=== PATIENT | female | born 1965 | race American Indian/Alaskan Native ===

== ENCOUNTER 2016-06-28 21:24 | Emergency (ER) | payer BC ==
[2016-06-28 23:45] LABS: Basophils % (Auto) 0.9 % (0.0-1.8); Eosinophils % (Auto) 1.8 % (0.0-4.3); Mean Corpuscular HGB Conc 34 % (30-34); Mean Corpuscular Hemoglobin 30 pg (28-32); Mean Corpuscular Volume 89 fl (79-97); Platelet Count 263 K/mm3 (140-440); Red Blood Count 4.94 M/mm3 (3.65-5.03); Red Cell Distribution Width 13.9 % (13.2-15.2); White Blood Count 9.6 K/mm3 (4.5-11.0)
[2016-06-29 00:10] LABS: Alanine Aminotransferase 13 units/L (7-56); Albumin 4.2 g/dL (3.9-5); Albumin/Globulin Ratio 1.4 %; Alkaline Phosphatase 80 units/L (35-129); Anion Gap 19 mmol/L; BUN/Creatinine Ratio 23.33; Bilirubin,Total 0.3 mg/dL (0.1-1.2); Blood Urea Nitrogen 21 mg/dL (7-17); Calcium 9.7 mg/dL (8.4-10.2); Carbon Dioxide 23 mmol/L (22-30); Chloride 102.4 mmol/L (98-107); Glucose 124 mg/dL (65-100); Lipase 58 units/L (13-60); Potassium 3.5 mmol/L (3.6-5.0); Sodium 141 mmol/L (137-145); Total Protein 7.3 g/dL (6.3-8.2)
[2016-06-29 00:24] LABS: Bacteria,Urine 1+ /HPF (Negative); Bilirubin,Urine NEG (Negative); Blood,Urine LG (Negative); Ketones,Urine NEG (Negative); Leukocyte Esterase,Urine NEG (Negative); Mucus,Urine FEW /HPF; Nitrite,Urine NEG (Negative); Urobilinogen,Urine < 2.0 mg/dL (<2.0)
[2016-06-29 00:30] LABS: RBC,Urine > 182.0 /HPF (0.0-6.0)
[2016-06-29] MEDS ORDERED: NACL 0.9% 1000 ML 1,000 ML IV ONE (04:12)
--- NOTE | 2016-06-29 04:12 | Emergency Department Report ---
ED Female HPI - General Chief complaint: Urogenital-Female Stated complaint: BODY PAIN/BLOOD IN URINE Time Seen by Provider: 06/29/16 04:01 Source: patient Mode of arrival: Ambulatory Limitations: No Limitations - History of Present Illness Initial comments: This is a 51-year-old female who reports 2 day history of left flank pain. She reports some mild wrapping around towards the left lower quadrant of the abdomen. She reports dysuria as well as hematuria. She states that she had kidney stone times once in the past approximately 10 years ago. She did report being admitted in the hospital overnight while she received IV fluids for this totally resolved. Patient denies nausea vomiting or diarrhea. She denies fever she denies trauma. No change in pain with activities. She describes the pain is constant. - Related Data Previous Rx's Medication Instructions Recorded Last Taken Type Ciprofloxacin HCl [Ciprofloxacin 500 mg PO Q12HR #14 tab 06/29/16 Unknown Rx TAB] oxyCODONE /ACETAMINOPHEN [Percocet 1 tab PO Q6HR PRN #20 tablet 06/29/16 Unknown Rx 5/325] Allergies Allergy/AdvReac Type Severity Reaction Status Date / Time naproxen [From Naprosyn] Allergy Bleeding Verified 09/27/15 00:27 ibuprofen AdvReac Bleeding Verified 09/27/15 00:27 ED Review of Systems ROS: Stated complaint: BODY PAIN/BLOOD IN URINE Other details as noted in HPI Comment: All other systems reviewed and negative Constitutional: denies: chills, fever Eyes: denies: eye pain, eye discharge, vision change ENT: denies: ear pain, throat pain Respiratory: denies: cough, shortness of breath, wheezing Cardiovascular: denies: chest pain, palpitations Endocrine: no symptoms reported Gastrointestinal: denies: abdominal pain, nausea, diarrhea Genitourinary: dysuria, hematuria. denies: urgency, discharge Musculoskeletal: denies: back pain, joint swelling, arthralgia Skin: denies: rash, lesions Neurological: denies: headache, weakness, paresthesias Psychiatric: denies: anxiety, depression Hematological/Lymphatic: denies: easy bleeding, easy bruising ED Past Medical Hx - Past Medical History Previous Medical History?: No - Surgical History Past Surgical History?: Yes Additional Surgical History: , myomectomy, foot surgery - Social History Smoking Status: Current Some Day Smoker Substance Use Type: None - Medications Home Medications: Home Medications Medication Instructions Recorded Confirmed Last Taken Type Ciprofloxacin HCl [Ciprofloxacin 500 mg PO Q12HR #14 tab 06/29/16 Unknown Rx TAB] oxyCODONE /ACETAMINOPHEN [Percocet 1 tab PO Q6HR PRN #20 tablet 06/29/16 Unknown Rx 5/325] ED Physical Exam - General Limitations: No Limitations General appearance: alert, in no apparent distress - Head Head exam: Present: atraumatic, normocephalic - Eye Eye exam: Present: normal appearance, EOMI. Absent: scleral icterus - ENT ENT exam: Present: normal exam, normal orophraynx, mucous membranes moist - Neck Neck exam: Present: normal inspection. Absent: tenderness, lymphadenopathy - Respiratory Respiratory exam: Present: normal lung sounds bilaterally. Absent: respiratory distress - Cardiovascular Cardiovascular Exam: Present: regular rate, normal rhythm. Absent: systolic murmur, diastolic murmur, rubs, gallop - GI/Abdominal GI/Abdominal exam: Present: soft, normal bowel sounds. Absent: tenderness, guarding - Extremities Exam Extremities exam: Present: normal inspection. Absent: tenderness, pedal edema, calf tenderness - Back Exam Back exam: Present: normal inspection, CVA tenderness (L). Absent: tenderness, CVA tenderness (R) - Neurological Exam Neurological exam: Present: alert, oriented X3 - Psychiatric Psychiatric exam: Present: normal affect, normal mood - Skin Skin exam: Present: warm, dry, intact, normal color. Absent: rash ED Course Vital Signs 06/28/16 06/29/16 06/29/16 22:30 01:56 05:11 Temperature 98.2 F Pulse Rate 76 70 Respiratory 16 18 20 Rate Blood Pressure 148/83 148/83 [Right] O2 Sat by Pulse 100 100 Oximetry - Reevaluation(s) Reevaluation #1: 06/29/16 06:48 Patient's presentation seems most consistent with kidney stone. It is surprising to me that her pain is so constant in nature however. She does have significant hematuria noted in the urine. There are a few WBCs but it does not have the classic appearance of an infectious process at this time. Rest of lab studies are fairly unremarkable. Patient given pain medications here. Reevaluation #2: 06/29/16 06:49 CT examination abdomen pelvis with impression of right calyceal calculi 2 mm. No obstructing process. Left kidney without any renal calculi or obstructing process no hydronephrosis noted. There is mild diverticulosis noted without otitis. Normal appendix is noted. Normal ovaries are noted. No inflammatory process is appreciated. Reevaluation #3: 06/29/16 06:50 My impression given the CT study is that the patient's hematuria is probably due to hemorrhagic cystitis versus pyelonephritis. It's unclear case to me in general. I am inclined to trial on antibiotics in case of infectious process spell. She is afebrile here with a normal white cell count. Urine does demonstrate some white blood cells in it and markers as well. An alternative etiology that is more likely at this point. I guess it is possible that she may have already passed a stone but her pain is persisting so I do not think that is the case. Pyelonephritis would consist be More consistent with persistent discomfort and she is having as well. hemodynamically she is stable. I feel she is safe for home. She will be with her at home. ED Medical Decision Making - Lab Data Result diagrams: 06/28/16 23:08 06/28/16 23:08 Critical care attestation.: If time is entered above; I have spent that time in minutes in the direct care of this critically ill patient, excluding procedure time. ED Disposition Clinical Impression: Left flank pain, Pyelonephritis Disposition: DISCHARGED TO HOME OR SELFCARE Is pt being admited?: No Does the pt Need Aspirin: No Condition: Stable Instructions: Acute Pyelonephritis (ED) Additional Instructions: Drink plenty of fluids. Stay on top of your pain medication. Return if worsening. Consider cranberry tablets as well. Prescriptions: Ciprofloxacin HCl [Ciprofloxacin TAB] 500 mg PO Q12HR #14 tab oxyCODONE /ACETAMINOPHEN [Percocet 5/325] 1 tab PO Q6HR PRN #20 tablet PRN Reason: Pain Referrals: JAYCE RAMOS MD [Primary Care Provider] - 3-5 Days Time of Disposition: 06:46
[2016-06-29] MEDS ORDERED: DILAUDID IV ONE ×2 (04:14→06:43)
--- NOTE | 2016-06-29 05:50 | Cat Scan Report ---
FINAL REPORT PROCEDURE: CT ABDOMEN PELVIS WO CON TECHNIQUE: Computerized axial tomography of the abdomen and pelvis was performed without intravenous contrast. This study is performed without intravascular contrast material and its sensitivity for abdominal and pelvic pathology, including neoplasms, inflammation, abscess, free fluid, thrombosis, arterial dissection and infarction, is reduced compared with a contrast enhanced study. HISTORY: L Flank pain COMPARISON: No prior studies are available for comparison. FINDINGS: Visualized lower thorax: No significant abnormality. Liver: Normal size and attenuation. Spleen: Normal size and attenuation. Gallbladder and biliary system: Normal. Pancreas: Normal. Adrenals: Normal. Kidneys: There is a 4 millimeter stone in the right renal pelvis. There is a 2 millimeter stone in the upper pole the right kidney. There is no hydronephrosis or hydroureter.. GI tract: There is diverticulosis of the colon. There is no diverticulitis or colitis. There is no bowel obstruction or mass. The appendix is normal.. Lymph nodes and mesentery: Normal. Vasculature: Normal. Bladder: Normal. Reproductive organs: Uterus and ovaries are unremarkable. There are pelvic phleboliths.. Peritoneum: There is no ascites or free air, abscess or adenopathy.. Musculoskeletal structures: No significant abnormality. Other: There is an umbilical hernia containing fat only.. IMPRESSION: There right kidney stones without hydronephrosis. There are no left kidney stones.. There is diverticulosis of the colon. There is no diverticulitis or colitis. There is no bowel obstruction or mass. The appendix is normal.. Uterus and ovaries are unremarkable. There are pelvic phleboliths.. There is no ascites or free air, abscess or adenopathy.. There is an umbilical hernia containing fat only..
[2016-06-29] MEDS ORDERED: ZOFRAN ONE (06:27)
[2016-06-29] MEDS ORDERED: ZOFRAN IV ONE (06:32)
[2016-06-29] MEDS ORDERED: ROCEPHIN/NS 1 GM/50 ML 1 GM/50 ML BAG IV ONE (06:43)
[2016-06-29 07:52] VITALS: BP 115/71
== END 2016-06-29 07:51 | disposition home or self-care (01) ==
LOC: ED 21:24
DX: N12 Tubulo-interstitial nephritis, not specified as acute or chronic (principal); F17.200 Nicotine dependence, unspecified, uncomplicated; Z90.10 Acquired absence of unspecified breast and nipple; Z88.6 Allergy status to analgesic agent; Z88.8 Allergy status to other drugs, medicaments and biological substances
CPT/HCPCS: 36415; 74176; 80053; 81001; 83690; 84703; 85025; 96361; 96365; 96375; 96376; 99284; J0696; J1170; J2405; J7030